=== PATIENT | male | born 1980 | race Caucasian/White ===

== ENCOUNTER 2021-08-22 16:38 | Emergency (ER) | payer BC ==
[~2021-08-22] VITALS: Ht 177.8 cm; Wt 109.1 kg
[2021-08-22 17:05] VITALS: BP 160/104
[2021-08-23] MEDS ORDERED: DOXY-354 PO (15:27)
== END 2021-08-22 18:34 | disposition left against medical advice (07) ==
LOC: EMS 16:38
DX: Z53.21 Procedure and treatment not carried out due to patient leaving prior to being seen by health care provider (principal)

== ENCOUNTER 2021-08-23 10:39 | Inpatient (IN) | payer BC ==
[~2021-08-23] VITALS: Ht 177.8 cm; Wt 100.0 kg
[2021-08-23] MEDS ORDERED: DOXY-354 PO (15:27)
[2021-08-23] MEDS ORDERED: PIPERACILLIN/TAZO 3.375 GM/D5W 50 ML IV ONE (15:45)
[2021-08-23] MEDS ORDERED: SODIUM CHLORIDE 0.9% 1,000 ML IV ONE ×2 (15:45→17:45)
[2021-08-23 15:59] LABS: BASOPHILS % (AUTO) 0.4 % (0.0-2.0); EOSINOPHILS % (AUTO) 1.2 % (1.0-6.0); HEMATOCRIT 41.2 % (41-53); HEMOGLOBIN 14.2 g/dL (13.5-17.5); LYMPHOCYTES # (AUTO) 2.2 K/uL (1.0-4.8); LYMPHOCYTES % (AUTO) 17.2 % (22.0-44.0); MEAN CORPUSCULAR HEMOGLOBIN 30.8 pg (26.0-34.0); MEAN CORPUSCULAR HGB CONC 34.5 G/dL (31.0-37.0); MEAN CORPUSCULAR VOLUME 89 fL (80-100); MONOCYTES % (AUTO) 15.5 % (2.0-9.0); NEUTROPHILS # (AUTO) 8.2 K/uL (1.8-7.7); NEUTROPHILS % (AUTO) 65.7 % (40.0-70.0); PLATELET COUNT (AUTO) 241 K/uL (150-450); RED BLOOD CELL COUNT(AUTO) 4.63 MIL/uL (4.50-5.90); RED CELL DISTRIBUTION WIDTH 12.5 % (11.5-14.5)
[2021-08-23 16:08] LABS: COVID AG,FIA SOURCE NASOPHARYNGEAL
[2021-08-23 16:09] LABS: ANION GAP 11 mmol/L (8-16); CALCIUM, TOTAL 8.7 mg/dL (8.8-10.5); CARBON DIOXIDE 26 mmol/L (22-29); CHLORIDE 103 mmol/L (98-107); CREATININE 1.04 mg/dL (0.60-1.30); GLOMERULAR FILTR. RATE CALC > 60 mL/min (>60); GLUCOSE,RANDOM 97 mg/dL (70-110); POTASSIUM 3.8 mmol/L (3.5-5.1); SODIUM SERUM 140 mmol/L (136-145); UREA NITROGEN, BLOOD 12 mg/dL (7-18)
[2021-08-23 16:13] LABS: ALANINE AMINOTRANSFERASE 17 U/L (12-78); ALBUMIN 2.8 g/dL (3.4-5.0); ALKALINE PHOSPHATASE 83 U/L (46-116); ASPARTATE AMINOTRANSFERASE 9 U/L (15-37); BILIRUBIN,TOTAL 0.3 mg/dL (0.1-1.0); TOTAL PROTEIN, SERUM 7.3 g/dL (6.4-8.2)
[2021-08-23] MEDS ORDERED: ACETAMINOPHEN 500 MG TABLET PO ONE (17:00)
[2021-08-23] MEDS ORDERED: NICOTINE 21 MG/24 HOUR PATCH TD ONE (17:30)
[2021-08-23] MEDS ORDERED: ONDANSETRON HCL 4 MG/2 ML VIAL IVP PRN ×2 (17:45→18:45)
[2021-08-23] MEDS ORDERED: MORPHINE SULFATE 4 MG/ML SYRINGE IVP PRN (17:45)
[2021-08-23] MEDS ORDERED: RINGERS LACTATED IV ONE (18:45)
[2021-08-23] MEDS ORDERED: CLINDAMYCIN 600 MG/D5% WATER 50 ML IV ONE (18:45)
[2021-08-23] MEDS: DOCUSATE SODIUM 100 MG CAPSULE PO SCH (21:29)
[2021-08-23 21:31] VITALS: BP 148/79
[2021-08-23] MEDS: MORPHINE SULFATE 2 MG/ML SYRINGE IVP PRN (21:31)
[2021-08-23 21:54] VITALS: BP 148/79
[2021-08-24] MEDS: HEPARIN SODIUM,PORCINE 5,000 UNITS/ML VIAL SQ SCH ×4 (00:05→23:57)
[2021-08-24 03:27] VITALS: BP 125/81
[2021-08-24] MEDS: MORPHINE SULFATE 2 MG/ML SYRINGE IVP PRN ×4 (03:27→23:57)
[2021-08-24 08:19] VITALS: BP 137/79
[2021-08-24] MEDS: ACETAMINOPHEN 325 MG TABLET PO PRN (08:43)
[2021-08-24] MEDS: POLYETHYLENE GLYCOL 3350 17 GM PACKET PO SCH (09:00)
[2021-08-24] MEDS: DOCUSATE SODIUM 100 MG CAPSULE PO SCH ×2 (09:00→20:10)
[2021-08-24] MEDS ORDERED: CHLORHEXIDINE GLUCONATE 4% 118 ML TOPICAL LIQUID TP ONE (12:25)
[2021-08-24] MEDS: PIPERACILLIN/TAZO 3.375 GM/D5W 50 ML IV SCH ×3 (12:38→23:56)
[2021-08-24] MEDS ORDERED: SODIUM CHLORIDE 0.9% 1,000 ML ONE (12:39)
[2021-08-24] MEDS ORDERED: SUGAMMADEX SODIUM 200 MG/2 ML VIAL IVP ONE (13:03)
[2021-08-24] MEDS ORDERED: IBUPROFEN 800 MG TABLET PO PRN (13:15)
[2021-08-24] MEDS ORDERED: HYDROCODONE/ACETAMINOPHEN 5-325 MG TABLET PO PRN (13:15)
[2021-08-24] MEDS ORDERED: FentaNYL CITRATE PF 100 MCG/2 ML VIAL IVP PRN (13:15)
[2021-08-24] MEDS ORDERED: HYDROmorphone 2 MG/ML VIAL IVP PRN (13:15)
[2021-08-24] MEDS ORDERED: FentaNYL CITRATE PF 100 MCG/2 ML VIAL ONE (13:43)
[2021-08-24 15:05] VITALS: BP 114/72
[2021-08-24 17:06] VITALS: BP 118/61
[2021-08-24] MEDS ORDERED: SODIUM CHLORIDE 0.9% 500 ML IV ONE (17:17)
[2021-08-24] MEDS: OXYGEN THERAPY IH SCH (20:00)
[2021-08-24] MEDS ORDERED: NICOTINE 21 MG/24 HOUR PATCH TD ONE (21:00)
[2021-08-24 21:04] VITALS: BP 115/52
[2021-08-24 23:23] VITALS: BP 140/79
[2021-08-25 05:41] VITALS: BP 135/76
[2021-08-25] MEDS: PIPERACILLIN/TAZO 3.375 GM/D5W 50 ML IV SCH ×4 (05:56→23:29)
[2021-08-25] MEDS: MORPHINE SULFATE 2 MG/ML SYRINGE IVP PRN ×3 (05:56→20:41)
[2021-08-25] MEDS ORDERED: PROPOFOL 1% 20 ML VIAL IVP ONE (06:26)
[2021-08-25] MEDS ORDERED: LIDOCAINE/PF 2% 5 ML VIAL IM ONE (06:26)
[2021-08-25] MEDS ORDERED: ONDANSETRON HCL 4 MG/2 ML VIAL IVP ONE (06:26)
[2021-08-25] MEDS ORDERED: KETOROLAC TROMETHAMINE 60 MG/2 ML VIAL IM ONE (06:26)
[2021-08-25] MEDS ORDERED: ROCURONIUM BROMIDE 10 MG/ML 5 ML VIAL IVP ONE (06:26)
[2021-08-25] MEDS ORDERED: SUCCINYLCHOLINE CHLORIDE 20 MG/ML 10 ML VIAL IVP ONE (06:26)
[2021-08-25 07:23] LABS: BASOPHILS % (AUTO) 0.2 % (0.0-2.0); EOSINOPHILS % (AUTO) 2.4 % (1.0-6.0); HEMATOCRIT 35.9 % (41-53); HEMOGLOBIN 12.5 g/dL (13.5-17.5); LYMPHOCYTES # (AUTO) 2.5 K/uL (1.0-4.8); LYMPHOCYTES % (AUTO) 26.6 % (22.0-44.0); MEAN CORPUSCULAR HGB CONC 34.8 G/dL (31.0-37.0); MEAN CORPUSCULAR VOLUME 89 fL (80-100); MONOCYTES # (AUTO) 1.1 K/uL (0.1-1.0); MONOCYTES % (AUTO) 11.8 % (2.0-9.0); NEUTROPHILS # (AUTO) 5.6 K/uL (1.8-7.7); PLATELET COUNT (AUTO) 238 K/uL (150-450); RED BLOOD CELL COUNT(AUTO) 4.04 MIL/uL (4.50-5.90); RED CELL DISTRIBUTION WIDTH 12.4 % (11.5-14.5)
[2021-08-25 07:31] LABS: ANION GAP 8 mmol/L (8-16); CALCIUM, TOTAL 8.5 mg/dL (8.8-10.5); CARBON DIOXIDE 27 mmol/L (22-29); CHLORIDE 107 mmol/L (98-107); CREATININE 1.01 mg/dL (0.60-1.30); GLOMERULAR FILTR. RATE CALC > 60 mL/min (>60); GLUCOSE,RANDOM 122 mg/dL (70-110); SODIUM SERUM 142 mmol/L (136-145); UREA NITROGEN, BLOOD 13 mg/dL (7-18)
[2021-08-25] MEDS: OXYGEN THERAPY IH SCH ×2 (08:00→20:44)
[2021-08-25 08:12] VITALS: BP 141/75
[2021-08-25] MEDS: DOCUSATE SODIUM 100 MG CAPSULE PO SCH ×2 (08:24→20:37)
[2021-08-25] MEDS: HEPARIN SODIUM,PORCINE 5,000 UNITS/ML VIAL SQ SCH ×3 (08:25→23:29)
[2021-08-25] MEDS: POLYETHYLENE GLYCOL 3350 17 GM PACKET PO SCH (08:25)
[2021-08-25 16:24] VITALS: BP 136/71
[2021-08-25] MEDS ORDERED: SODIUM CL IRRIG SOLN BOTTLE 250 ML IRRIG ONE (16:41)
[2021-08-25] MEDS ORDERED: HYDROmorphone 2 MG/ML VIAL IVP ONE (17:15)
[2021-08-25 20:53] VITALS: BP 127/78
[2021-08-25] MEDS: NICOTINE 21 MG/24 HOUR PATCH TD SCH (23:29)
[2021-08-26 06:00] VITALS: BP 133/68
[2021-08-26] MEDS: PIPERACILLIN/TAZO 3.375 GM/D5W 50 ML IV SCH ×4 (06:14→23:23)
[2021-08-26] MEDS: MORPHINE SULFATE 2 MG/ML SYRINGE IVP PRN ×4 (06:21→20:22)
[2021-08-26 07:59] LABS: BASOPHILS % (AUTO) 0.4 % (0.0-2.0); EOSINOPHILS % (AUTO) 3.4 % (1.0-6.0); HEMATOCRIT 36.3 % (41-53); HEMOGLOBIN 12.6 g/dL (13.5-17.5); LYMPHOCYTES # (AUTO) 3.4 K/uL (1.0-4.8); MEAN CORPUSCULAR HEMOGLOBIN 30.8 pg (26.0-34.0); MEAN CORPUSCULAR HGB CONC 34.6 G/dL (31.0-37.0); MEAN CORPUSCULAR VOLUME 89 fL (80-100); MONOCYTES # (AUTO) 0.8 K/uL (0.1-1.0); MONOCYTES % (AUTO) 9.3 % (2.0-9.0); NEUTROPHILS # (AUTO) 3.8 K/uL (1.8-7.7); NEUTROPHILS % (AUTO) 45.9 % (40.0-70.0); PLATELET COUNT (AUTO) 256 K/uL (150-450); RED BLOOD CELL COUNT(AUTO) 4.07 MIL/uL (4.50-5.90); RED CELL DISTRIBUTION WIDTH 12.5 % (11.5-14.5)
[2021-08-26] MEDS: OXYGEN THERAPY IH SCH ×2 (08:00→20:00)
[2021-08-26 08:16] LABS: ANION GAP 9 mmol/L (8-16); CALCIUM, TOTAL 8.5 mg/dL (8.8-10.5); CARBON DIOXIDE 28 mmol/L (22-29); CHLORIDE 106 mmol/L (98-107); GLOMERULAR FILTR. RATE CALC > 60 mL/min (>60); GLUCOSE,RANDOM 104 mg/dL (70-110); POTASSIUM 4.1 mmol/L (3.5-5.1); SODIUM SERUM 143 mmol/L (136-145); UREA NITROGEN, BLOOD 10 mg/dL (7-18)
[2021-08-26] MEDS: DOCUSATE SODIUM 100 MG CAPSULE PO SCH ×2 (09:00→20:33)
[2021-08-26] MEDS: POLYETHYLENE GLYCOL 3350 17 GM PACKET PO SCH (09:00)
[2021-08-26] MEDS: NICOTINE 21 MG/24 HOUR PATCH TD SCH (09:30)
[2021-08-26] MEDS: HEPARIN SODIUM,PORCINE 5,000 UNITS/ML VIAL SQ SCH ×3 (09:30→23:28)
[2021-08-26] MEDS: LIDOCAINE 2% 30 ML JELLY TP SCH (12:30)
[2021-08-26] MEDS ORDERED: SODIUM CHLORIDE 0.9% IRRIG BTL 1,000 ML IRRIG ONE (15:18)
[2021-08-26 16:41] VITALS: BP 120/72
[2021-08-26 20:10] VITALS: BP 140/83
[2021-08-26] MEDS: ACETAMINOPHEN 325 MG TABLET PO PRN (20:33)
[2021-08-27 04:40] VITALS: BP 137/79
[2021-08-27] MEDS: PIPERACILLIN/TAZO 3.375 GM/D5W 50 ML IV SCH ×2 (05:53→11:01)
[2021-08-27] MEDS: MORPHINE SULFATE 2 MG/ML SYRINGE IVP PRN ×2 (06:01→10:13)
[2021-08-27 06:27] LABS: BASOPHILS % (AUTO) 0.4 % (0.0-2.0); EOSINOPHILS % (AUTO) 3.6 % (1.0-6.0); HEMATOCRIT 36.3 % (41-53); HEMOGLOBIN 12.7 g/dL (13.5-17.5); LYMPHOCYTES % (AUTO) 37.8 % (22.0-44.0); MEAN CORPUSCULAR HEMOGLOBIN 31.4 pg (26.0-34.0); MEAN CORPUSCULAR HGB CONC 35.1 G/dL (31.0-37.0); MEAN CORPUSCULAR VOLUME 89 fL (80-100); MONOCYTES # (AUTO) 0.9 K/uL (0.1-1.0); MONOCYTES % (AUTO) 8.1 % (2.0-9.0); NEUTROPHILS # (AUTO) 5.2 K/uL (1.8-7.7); NEUTROPHILS % (AUTO) 50.1 % (40.0-70.0); PLATELET COUNT (AUTO) 332 K/uL (150-450); RED BLOOD CELL COUNT(AUTO) 4.06 MIL/uL (4.50-5.90); RED CELL DISTRIBUTION WIDTH 12.4 % (11.5-14.5)
[2021-08-27 06:38] LABS: ANION GAP 4 mmol/L (8-16); CALCIUM, TOTAL 8.8 mg/dL (8.8-10.5); CARBON DIOXIDE 30 mmol/L (22-29); CHLORIDE 107 mmol/L (98-107); GLOMERULAR FILTR. RATE CALC > 60 mL/min (>60); GLUCOSE,RANDOM 104 mg/dL (70-110); POTASSIUM 4.6 mmol/L (3.5-5.1); SODIUM SERUM 141 mmol/L (136-145); UREA NITROGEN, BLOOD 10 mg/dL (7-18)
[2021-08-27] MEDS: OXYGEN THERAPY IH SCH (08:00)
[2021-08-27] MEDS: DOCUSATE SODIUM 100 MG CAPSULE PO SCH (08:20)
[2021-08-27] MEDS: POLYETHYLENE GLYCOL 3350 17 GM PACKET PO SCH (08:20)
[2021-08-27] MEDS: HEPARIN SODIUM,PORCINE 5,000 UNITS/ML VIAL SQ SCH (08:21)
[2021-08-27] MEDS: NICOTINE 21 MG/24 HOUR PATCH TD SCH (08:26)
[2021-08-27 08:34] VITALS: BP 138/77
[2021-08-27] MEDS: LIDOCAINE 2% 30 ML JELLY TP SCH (08:39)
[2021-08-27] MEDS ORDERED: AMOX1TAB16 PO (13:31)
[2021-08-27] MEDS ORDERED: CefTRIAXone 1 GM/DEXTROSE 50 ML IV SCH (14:00)
== END 2021-08-27 16:10 | disposition left against medical advice (07) | DRG 854 ==
LOC: EMS 10:43 → 6S 18:35
PROVIDERS: ADMIT Internal Medicine; ATTEND Internal Medicine
PROC: 0D9Q0ZZ Drainage of Anus, Open Approach (ICD-10-PCS; principal; 2021-08-24 12:45)
DX: A41.9 Sepsis, unspecified organism (principal); K61.2 Anorectal abscess; D64.9 Anemia, unspecified; Z20.822 Contact with and (suspected) exposure to COVID-19; Z53.29 Procedure and treatment not carried out because of patient's decision for other reasons; K59.00 Constipation, unspecified; F17.210 Nicotine dependence, cigarettes, uncomplicated; Z91.041 Radiographic dye allergy status; Z71.6 Tobacco abuse counseling
CPT/HCPCS: 74176; 80048; 80053; 83605; 85025; 87040; 87070; 87081; 87101; 87205; 99285; G0238; J0330; J0696; J1170; J1644; J1885; J2270; J2405; J2543; J2704; J3010; J3490; J7030; J7040; Q9967; 36415-L1; 36415-TC; Z7610